=== PATIENT | female | born 1970 | race African-American/Black ===

== ENCOUNTER 2019-05-28 08:58 | Emergency (ER) | payer BC, MEDICAID ==
[~2019-05-28] VITALS: Ht 162.6 cm; Wt 77.1 kg
[2019-05-28 09:39] VITALS: BP 113/68
== END 2019-05-28 11:34 | disposition home or self-care (01) ==
LOC: ER 08:58
DX: N64.4 Mastodynia (principal); F41.9 Anxiety disorder, unspecified
CPT/HCPCS: 76642

== ENCOUNTER 2024-12-27 13:59 | Emergency (ER) | payer MEDICAID ==
[~2024-12-27] VITALS: Ht 162.6 cm; Wt 90.9 kg
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
[2024-12-27] MEDS: HYDROcodone-ACET 10/325MG TAB PO ONE (15:42)
[2024-12-27 15:43] VITALS: BP 135/80; PULSE 74; RESP 18; TEMP 98.3; O2SAT 98
[2024-12-27] MEDS: KETOROLAC TROMETH 60MG/2ML VIAL IM ONE (15:46)
[2024-12-27] MEDS ORDERED: IBU600T PO (15:47)
[2024-12-27] MEDS ORDERED: CARI250T PO (16:16)
== END 2024-12-27 16:22 | disposition home or self-care (01) ==
LOC: EDBD 13:59 → ER 14:03
DX: T14.8XXA Other injury of unspecified body region, initial encounter (principal); M79.18 Myalgia, other site; R07.89 Other chest pain; M54.9 Dorsalgia, unspecified; I10 Essential (primary) hypertension; Z98.890 Other specified postprocedural states; V59.88XA Occupant (driver) (passenger) of pick-up truck or van injured in other specified transport accidents, initial encounter; Y93.I9 Activity, other involving external motion; Y92.488 Other paved roadways as the place of occurrence of the external cause; Y99.8 Other external cause status
CPT/HCPCS: 71045; 72040; 72100; 96372; 99284; J1885